=== PATIENT | female | born 1995 | race Caucasian/White ===

== ENCOUNTER 2016-06-04 07:22 | Emergency (ER) | payer OTHER ==
[~2016-06-04 07:22] MED LIST: COLACE100 MG PO; IBUPROFEN600 MG PO; NORCO 5-325 TA1 EACH PO; PRAMET FA TAB1 EA PO
[2016-06-04 08:14] LABS: RED BLOOD COUNT 5.4 M/UL (4.00-5.10); WHITE BLOOD COUNT 19.8 K/UL (4.5-11.0)
[2016-06-04 08:29] LABS: BUN/CREATININE RATIO 30 (0-10)
== END 2016-06-04 09:35 | disposition home or self-care (01) ==
LOC: ER1 07:22
PROVIDERS: Physician Assistant
DX: R11.2 Nausea with vomiting, unspecified (principal); R19.7 Diarrhea, unspecified; N39.0 Urinary tract infection, site not specified
CPT/HCPCS: 36415; 80053; 81001; 84703; 85025; 96361; 96374; 99284; J2405; J7030

== ENCOUNTER 2016-07-25 08:29 | Emergency (ER) | payer OTHER | END 2016-07-25 10:20 | disposition home or self-care (01) | LOC: ER1 08:29 | DX: S46.211A Strain of muscle, fascia and tendon of other parts of biceps, right arm, initial encounter (principal); X58.XXXA Exposure to other specified factors, initial encounter | CPT/HCPCS: 93971; 96372; 99283; J1885 ==

== ENCOUNTER 2020-05-14 17:30 | Emergency (ER) | payer OTHER ==
[~2020-05-14 17:30] MED LIST changes: +IBUPROFEN800 MG PO; +OMNICEF 300 MG300 MG PO; +PERCOCET 5/325 T1 EA PO; +ZOFRAN ODT 4 MG4 MG PO
[2020-05-14 19:45] LABS: HEMOGLOBIN 15.1 gm/dl (12.3-15.3); RED BLOOD COUNT 5.1 M/UL (4.00-5.10); WHITE BLOOD COUNT 14.6 K/UL (4.5-11.0)
[2020-05-14 20:15] LABS: BUN/CREATININE RATIO 18 (0-10)
== END 2020-05-14 20:43 | disposition home or self-care (01) ==
LOC: ER1 17:30
PROVIDERS: Emergency Medicine
DX: T78.1XXA Other adverse food reactions, not elsewhere classified, initial encounter (principal); K29.00 Acute gastritis without bleeding; K21.9 Gastro-esophageal reflux disease without esophagitis
CPT/HCPCS: 36415; 80053; 83690; 85025; 99284

== ENCOUNTER 2020-09-29 16:20 | Emergency (ER) | payer OTHER | END 2020-09-29 18:21 | disposition home or self-care (01) | LOC: ER1 16:20 | DX: S10.93XA Contusion of unspecified part of neck, initial encounter (principal); R07.9 Chest pain, unspecified; V49.3XXA Car occupant (driver) (passenger) injured in unspecified nontraffic accident, initial encounter; W22.10XA Striking against or struck by unspecified automobile airbag, initial encounter | CPT/HCPCS: 71046; 73130; 99283 ==

== ENCOUNTER → 2021-01-10 | Outpatient (CLI) | payer OTHER | LOC: RAD 16:08 | DX: M25.561 Pain in right knee (principal) | CPT/HCPCS: 73560 ==

== ENCOUNTER 2021-01-30 10:36 | Emergency (ER) | payer OTHER ==
[2021-01-30 11:33] LABS: HEMOGLOBIN 15.5 gm/dl (12.3-15.3); RED BLOOD COUNT 5.17 M/UL (4.00-5.10); WHITE BLOOD COUNT 7.3 K/UL (4.5-11.0)
[2021-01-30 11:59] LABS: BUN/CREATININE RATIO 14 (0-10)
[2021-01-30] MEDS ORDERED: OMNICEF 300 MG300 MG PO (12:48)
[2021-01-30] MEDS ORDERED: ZOFRAN4 MG PO (12:48)
== END 2021-01-30 13:01 | disposition home or self-care (01) ==
LOC: ER1 10:36
PROVIDERS: Physician Assistant
DX: N39.0 Urinary tract infection, site not specified (principal); R42 Dizziness and giddiness
CPT/HCPCS: 80053; 81001; 82550; 82553; 83874; 84484; 84703; 85025; 87086; 93005; 99284

== ENCOUNTER 2021-03-15 12:27 | Emergency (ER) | payer OTHER ==
[~2021-03-15 12:27] MED LIST changes: +ZOFRAN4 MG PO
== END 2021-03-15 13:05 | disposition left against medical advice (07) ==
LOC: ER1 12:27
DX: Z53.21 Procedure and treatment not carried out due to patient leaving prior to being seen by health care provider (principal)

== ENCOUNTER 2021-03-28 15:59 | Emergency (ER) | payer OTHER ==
[2021-03-28 19:39] LABS: HEMOGLOBIN 13.7 gm/dl (12.3-15.3); RED BLOOD COUNT 4.69 M/UL (4.00-5.10); WHITE BLOOD COUNT 18.3 K/UL (4.5-11.0)
[2021-03-28 20:06] LABS: BUN/CREATININE RATIO 29 (0-10)
[2021-03-28] MEDS ORDERED: MACROBID 100 M100 M1 PO (22:11)
== END 2021-03-28 23:08 | disposition home or self-care (01) ==
LOC: ER1 15:59
PROVIDERS: Nurse Practitioner
DX: N39.0 Urinary tract infection, site not specified (principal)
CPT/HCPCS: 80048; 81001; 85025; 87086; 96374; 99284; J0696; Q9967

== ENCOUNTER 2021-04-07 15:56 | Emergency (ER) | payer OTHER ==
[~2021-04-07 15:56] MED LIST changes: +MACROBID 100 M100 M1 PO
[2021-04-07] MEDS ORDERED: ROBAXIN 750 MG750 MG GT (16:29)
== END 2021-04-07 16:30 | disposition home or self-care (01) ==
LOC: ER1 15:56
DX: M54.50 Low back pain, unspecified (principal); G89.29 Other chronic pain
CPT/HCPCS: 99283

== ENCOUNTER 2021-06-27 01:38 | Emergency (ER) | payer OTHER ==
[~2021-06-27 01:38] MED LIST changes: +ROBAXIN 750 MG750 MG GT
[2021-06-27 02:06] LABS: HEMOGLOBIN 16.2 gm/dl (12.3-15.3); RED BLOOD COUNT 5.38 M/UL (4.00-5.10); WHITE BLOOD COUNT 25.8 K/UL (4.5-11.0)
[2021-06-27] MEDS ORDERED: ZOFRAN 4 MG TAB4 MG PO (02:06)
[2021-06-27 02:30] LABS: BUN/CREATININE RATIO 27 (0-10)
[2021-06-27] MEDS ORDERED: OMNICEF 300 MG300 MG PO (03:21)
== END 2021-06-27 04:30 | disposition home or self-care (01) ==
LOC: ER1 01:38
PROVIDERS: Physician Assistant
DX: N39.0 Urinary tract infection, site not specified (principal); R11.2 Nausea with vomiting, unspecified; R19.7 Diarrhea, unspecified
CPT/HCPCS: 80053; 81001; 84703; 85025; 87086; 96374; 96375; 99284; J0696; J2405; J2550; J7030

== ENCOUNTER 2021-09-06 18:32 | Emergency (ER) | payer OTHER ==
[~2021-09-06 18:32] MED LIST changes: +ZOFRAN 4 MG TAB4 MG PO
[2021-09-06] MEDS ORDERED: PAXLOVID 150-11 EACH PO (20:17)
== END 2021-09-06 20:44 | disposition home or self-care (01) ==
LOC: ER1 18:32
DX: U07.1 COVID-19 (principal)
CPT/HCPCS: 0240U; 87081; 87880; 99284

== ENCOUNTER 2021-11-22 11:44 | Emergency (ER) | payer OTHER ==
[~2021-11-22 11:44] MED LIST changes: +PAXLOVID 150-11 EACH PO
== END 2021-11-22 13:30 | disposition left against medical advice (07) ==
LOC: ER1 11:44
DX: Z53.21 Procedure and treatment not carried out due to patient leaving prior to being seen by health care provider (principal)

== ENCOUNTER 2021-12-05 15:15 | Emergency (ER) | payer OTHER ==
[~2021-12-05 15:15] MED LIST changes: +CYCLOBENZAPRINE10 MG PO; +PREDNISONE10 MG PO
== END 2021-12-05 16:00 | disposition left against medical advice (07) ==
LOC: ER1 15:15
DX: Z53.21 Procedure and treatment not carried out due to patient leaving prior to being seen by health care provider (principal)